=== PATIENT | male | born 1955 | race Two or more races ===

== ENCOUNTER 2025-03-25 21:34 | Emergency (ER) | payer MEDICARE, MEDICAID, SELFPAY ==
[2025-03-25 22:21] VITALS: BP 156/94; PULSE 56; RESP 20; TEMP 36.5; O2SAT 95; BMI 33.2
--- NOTE | 2025-03-25 22:34 | XR_ITS ---
Examination: CT abdomen with intravenous contrast CT pelvis with intravenous contrast 2-D coronal reconstructions 2-D sagittal reconstructions Date and time of exam: March 26, 2025, 0057 hours INDICATIONS: Onset abdominal pain and vomiting beginning this morning. CTDI: vol (mGy) 10.6 DLP: (mGycm) 659 Technique: Multiple axial sections of the abdomen and pelvis have been obtained. 64 slice high-resolution scanner used. 3 mm axial sections have been obtained, post intravenous injection 60 cc [id number] 2-D sagittal, coronal reconstructions obtained. Low dose protocols were performed. One or more of the following dose reduction techniques were used; automated exposure control, adjustment of the mA and/or KV according to patient size, use of iterative reconstruction technique. Findings: 6 mm calcified granuloma left lower lobe No visualized liver or splenic lesion Distended gallbladder Possible air in the gallbladder Gallbladder wall appears thickened toward the cystic duct No common bile duct stones noted Aorta normal size No renal or ureteral calculi No bowel obstruction No pericecal inflammatory change Minimal thickening of the urinary bladder wall anteriorly up to 8 mm No bladder calculi Prostatomegaly transverse dimension 5 cm IMPRESSION: Distended gallbladder with possible gallbladder wall thickening, recommend repeat gallbladder sonography Moderate prostatomegaly Minimal thickening of the urinary bladder wall, consider early outflow obstruction secondary to prostatomegaly, cystitis
--- NOTE | 2025-03-25 22:35 | PD.EDRME ---
Rapid Medical Screening Exam RME Arrival date/time: 03/25/25 21:34 69M with no significant PMH (patient doesn't like doctors) presents to ED with sister for 2 days of ab pain and N/V. Patient denies diarrhea and alcohol/drug use. Chief Complaint: Abdominal Pain Time Seen by Provider: 03/25/25 22:36 Vital signs: Vital Signs Temperature 97.7 F 03/25/25 22:21 Pulse Rate 56 L 03/25/25 22:21 Respiratory Rate 20 03/25/25 22:21 Blood Pressure 156/94 H 03/25/25 22:21 Pulse Oximetry (%) 95 03/25/25 22:21 Oxygen Delivery Method Room Air 03/25/25 22:21 Exam: No gross/focal ab tenderness Clinical Impression: Gastritis vs gastroenteritis vs SBO vs pancreatitis
[2025-03-25 23:17] LABS: Basophils # (Auto) 0.0 Thou/mm3 (0.0-0.2); Basophils % (Auto) 0 % (0-2.5); Eosinophils # (Auto) 0.0 Thou/mm3 (0.0-0.5); Eosinophils % (Auto) 0 % (0-10); Hematocrit 41.8 % (41.0-53.0); Hemoglobin 13.8 g/dL (13.5-16.0); Immature Granulocytes Auto 0.01 Thou/mm3 (0.00-0.00); Lymphocytes # (Auto) 0.9 Thou/mm3 (1.0-4.8); Lymphocytes % (Auto) 13 % (10-50); Mean Corpuscular HGB Conc 33.0 g/dl (31.0-37.0); Mean Corpuscular Hemoglobin 32.5 pg (25.0-35.0); Mean Corpuscular Volume 98 fL (80-100); Monocytes # (Auto) 0.3 Thou/mm3 (0.0-0.8); Monocytes % (Auto) 4 % (0-12); Neutrophils # (Auto) 5.9 Thou/mm3 (1.8-7.7); Neutrophils % (Auto) 83 % (37-80); Nucleated Red Blood Cell # 0.00 Thou/mm3 (0.00-0.00); Nucleated Red Blood Cell % 0 /100 WBC (0); Platelet Count 179 Thou/mm3 (140-440); RDW Standard Deviation 45.0 fL (35.1-43.9); Red Blood Count 4.25 Miln/mm3 (4.50-5.90); White Blood Count 7.1 Thou/mm3 (3.8-10.6)
[2025-03-25] MEDS: ONDANSETRON INJ 2 MG/ML INJ 2 ML 4 MG IVP (23:24)
--- NOTE | 2025-03-25 23:45 | PD.EDABDPN ---
ED Abdominal Pain RME/HPI General Chief Complaint: Abdominal Pain Stated complaint: ABD PAIN AND VOMITING Time seen by provider: 03/25/25 22:36 Arrival date/time: 03/25/25 21:34 RME / HPI RME / HPI narrative: 03/25/25 21:34 69M with no significant PMH (patient doesn't like doctors) presents to ED with sister for 2 days of ab pain and N/V. Patient denies diarrhea and alcohol/drug use. DR. CAI MAIN ED EVALUATION: 69 y/o male with Hx of Developmental Delay and Heart Murmur BIB sister presents to ED c/o epigastric abdominal pain and vomiting s/p consumption of jalapenos x 2 days ago. Denies bloody stools and dysuria. Reports normal bowel movements. Patient currently resides with his brother who also has a mental disability who are both cared for by their 2 sisters who live directly next door. Exam: No gross/focal ab tenderness Impression: Gastritis vs gastroenteritis vs SBO vs pancreatitis Related Data Previous Rx's ?Medication ?Instructions ?Recorded ondansetron 4 mg disintegrating 4 mg PO Q12H PRN nausea and 03/26/25 tablet vomiting 3 days #6 tabs Allergies Allergy/AdvReac Type Severity Reaction Status Date / Time No Known Allergies Allergy Verified 03/25/25 21:36 Review of Systems Review of Systems Systems Reviewed: All systems reviewed, normal except as documented Past Medical History Past Medical History CARDIAC: Positive Heart Murmur OTHER HISTORY: Positive Developmental Delay ED Exam Narrative Physical exam: GEN. APPEARANCE: The patient is alert awake oriented X-3 in no distress, lying down comfortably, does not look ill/toxic. Patient has good eye contact. Patient is cooperative. VITALS: All vitals were reviewed and the pulse ox is 95% on room air which is normal according to my interpretation. HEENT: Normocephalic, atraumatic. Pupils are equal and reactive. Oral mucosa is moist. Patent Nares NECK: Supple, nontender, no thyromegaly, no meningismus, no JVD CHEST: Symmetrical, atraumatic, and with equal expansion , Nontender on palpation no deformity and no crepitus. CARDIOVASCULAR: Heart regular rhythm no murmur or gallop rub or extra beats. LUNGS: Clear to auscultation bilaterally with symmetrical chest rise. No laboring tachypnea or wheezing. No intercostal subcostal retraction. No rales and no rhonchi. ABDOMEN: Soft, flat, mild diffuse abdominal pain, no guarding or rebound tenderness. There are no abnormal masses palpated. Active and normal bowel sounds. EXTREMITIES: Nontender. Symmetrical BL 2+ pitting edema No cyanosis. Patient is able to move all 4 extremities well, with full ROM and good CSM. SKIN: Warm and dry, no jaundice or rashes noted. MUSCULOSKELETAL: No lumbar or midline bony tenderness. There is no CVA tenderness. No paraspinal muscle spasm or tenderness. NEURO: Patient is PALU x 4, Cranial nerves II through XII grossly intact. There is no focal neurologic deficits noted. GCS is 15, PNS and FOLDER MACHINE appear grossly intact. PSYCHIATRIC: Patient is in normal mood and affect. Course Quality Measures none Orders Category Date Time Status CT Screening NOW Care 03/25/25 22:34 Active EKG (ED ONLY) *Do not use* NOW Care 03/25/25 23:53 Completed Insert IV NOW Care 03/25/25 22:[address] abdomen pelvis w con Stat Exams 03/25/25 22:34 Taken EKG (ED Only) Stat Exams 03/25/25 23:53 Ordered US abdomen limited Stat Exams 03/26/25 02:17 Taken Alcohol, Blood Medical Stat Lab 03/25/25 23:00 Completed CBC Stat Lab 03/25/25 23:00 Completed CMP [Comprehensive Metabolic Panel] Stat Lab 03/25/25 23:00 Completed Drug Screen,Urine Stat Lab 03/25/25 23:42 Completed Lactic Acid [Lactate (Lactic Acid)] Stat Lab 03/25/25 23:52 Completed Lipase Stat Lab 03/25/25 23:00 Completed Troponin I Stat Lab 03/25/25 23:51 Completed Urinalysis, C/S if Indicated Stat Lab 03/25/25 23:42 Completed Morphine* Inj Med 03/26/25 00:17 Discontinued 4 mg IVP STAT STA Ondansetron Inj [Zofran Inj] Med 03/25/25 22:34 Discontinued 4 mg IVP X1 ONE Pantoprazole Inj [Protonix Inj] Med 03/25/25 22:34 Discontinued 40 mg IVP X1 ONE Ringers Lactated 1000 ml [Lactated Ringers] 1,000 ml Med 03/25/25 23:52 Discontinued IV 999 mls/hr Vital Signs Vital signs: Vital Signs Temperature 97.7 F 03/25/25 22:21 Pulse Rate 56 L 03/25/25 22:21 Respiratory Rate 20 03/25/25 22:21 Blood Pressure 156/94 H 03/25/25 22:21 Pulse Oximetry (%) 95 03/25/25 22:21 Oxygen Delivery Method Room Air 03/25/25 22:21 Abdominal Pain MDM MDM Narrative MDM Narrative:: Scribe Attestation: I, Hortencia Arango, am scribing for and in the presence of Dr. Cai. Provider Notation: Although this document has been carefully reviewed, there may still be some phonetic and other typographical errors. These errors are purely grammatical due to imperfections in the software program and should not be construed in any way to compromise the substance of the patient's medical care during this visit. Patient is a 69-year-old male with medical history notable for intellectual disability that send Emergency Department brought in by his sister with concerns for abdominal pain vomiting, and 1 episode of diarrhea. Vital signs and exam as listed. Concern for pancreatitis, partial SBO, appendicitis, enteritis, ACS among others. By provide evaluated patient. Ordered labs, EKG, CT abdomen and pelvis with contrast offered medication for symptom relief. On my evaluation patient is hemodynamically stable not in distress, abdomen soft nice and nontender not peritonitic. Labs without leukocytosis, does have a left shift of 83%. Hemoglobin normal. Labs without any acute hematologic or significant metabolic abnormalities, lactic acid normal, troponin not elevated, no transaminitis, lipase normal. Urinalysis without evidence of blood, nitrite negative, leuk esterase -5 RBCs less than 1 WBC no bacteria less likely infected. Drug screen negative. CT abdomen pelvis with contrast notable for distended gallbladder with gallstones and prominent wall suspicious for acute calculous cholecystitis. Ordered right upper quadrant ultrasound. Patient data External records reviewed:: [facility] previous records (No prior ED records available for review.) Clinical information provided by:: patient and family (Sister) Social determinants that could affect healthcare access:: none Patient has the following chronic illnesses:: Developmental Delay, Heart Murmur How is presenting disease/condition affected by chronic disease/condition?: uneffected by Evaluation data The following diagnostics were reviewed and interpreted by me:: lab results, radiology exam(s) and EKG tracing(s) (EKG done at 00:08, 60 bpm, first degree heart block, RBBB, not a cardiac alert. - Interpreted by Dr. Ruth Cai.) Lab and/or radiology exams considered but not ordered:: None Interpretation Summary: RADIOLOGY Abdomen/Pelvis CT: Findings: The lung bases are clear. The liver, pancreas, spleen, kidneys and adrenals are unremarkable. Distended gallbladder with prominent wall. Gallstones. No biliary duct dilation. Questionable trace of air within the gallbladder versus motion related artifact. No evidence of bowel obstruction. The appendix is within normal limits. There is no mesenteric or retroperitoneal adenopathy. The urinary bladder is unremarkable. There is no free fluid or free air.Enlarged prostate. Vascular calcifications. Degenerative changes of the imaged portions of the spine. Chronic multilevel disc disease. No acute fractures. Impression: Distended gallbladder with gallstones and prominent wall, suspicious for acute calculous cholecystitis. Questionable trace of air within the gallbladder versus motion related artifact. Enlarged prostate. Consider correlation with PSA. Abdomen US: Findings: The liver is normal in echogenicity. No intrahepatic biliary ductal dilatation. Distended gallbladder. No gallbladder calculus, wall thickening or pericholecystic fluid is demonstrated. The common bile duct is normal in caliber at 6.2 mm. The portal vein is patent with hepatopetal flow and normal wave Doppler spectral analysis. The IVC is patent with normal wave Doppler spectral analysis. Impression: Distended gallbladder without evidence of acute cholecystitis, if the clinical suspicion for acute cholecystitis is still high consider correlation with HIDA scan. Medications / Prescriptions Medications or Prescriptions considered but not ordered:: None Medication administrations:: Medication Administration History Discontinued Medications Lactated Ringer's (Lactated Ringers) 1,000 mls @ 999 mls/hr IV .Q1H1M ONE Stop: 03/26/25 00:52 Last Infusion: 03/26/25 04:03 Dose: Infused Documented By: Admin: 03/26/25 00:13 Dose: 999 mls/hr Documented By: EE Morphine Sulfate (Morphine Sulf Inj 4 Mg/Ml Vial) 4 mg IVP STAT STA Stop: 03/26/25 00:18 Last Admin: 03/26/25 01:10 Dose: 4 mg Documented By: MAURI Ondansetron HCl (Ondansetron Inj 2 Mg/Ml Inj 2 Ml) 4 mg IVP X1 ONE; Protocol Stop: 03/25/25 22:35 Last Admin: 03/25/25 23:24 Dose: 4 mg Documented By: EE Pantoprazole Sodium (Pantoprazole Inj 40 Mg Vial) 40 mg IVP X1 ONE Stop: 03/25/25 22:35 Last Admin: 03/26/25 00:20 Dose: 40 mg Documented By: GALILEA See above if any Consultations Consultation(s) initiated? (list below): No Diagnosis Differential diagnosis abdominal pain: abdominal pain, calculus of kidney, diverticulitis, gastroenteritis, pancreatitis, small bowel obstruction and other (Biliary colic, Cholelithiasis, Gastritis, GERD, Peptic Ulcer) Most likely diagnosis given after review of the tests above:: Abdominal pain, Diarrhea, Vomiting Admission Indicated Admission indicated?: not indicated Explain why admission is indicated or not indicated:: Patient does not meet admission criteria. Admission Request Was there a request for admission?: No Disposition Plan Disposition Plan: Discharge Discharge Attestation Discharge Attestation: The patient and all family members were given an opportunity to ask questions and understood the discharge instructions. Discharge instructions specifically effects, indications for sooner follow up or return to the emergency department, and the expected course of current diagnosis. Patient condition: Stable Discharge Plan Plan Patient Disposition: HOME (Self Care) Prescriptions/Referrals Prescriptions/Med Rec: New ondansetron 4 mg tablet,disintegrating 4 mg PO Q12H PRN (Reason: nausea and vomiting) 3 Days Qty: 6 0RF Referrals: Dar Ortiz MD [Primary Care Provider, Family Practice] - In 1 week Problem List Clinical Impression: Abdominal pain, Vomiting, Diarrhea Patient/Caregiver Discharge Instructions Print Language: Wallisian Stand Alone Forms: Elsie Award Info., Patient Portal Info Letter
[2025-03-25 23:46] LABS: Collection Type, Urine Clean Catch
[2025-03-25 23:55] LABS: Bilirubin,Urine Negative (Negative); Blood,Urine Negative (Negative); Clarity,Urine Clear (Clear/Hazy); Color,Urine Lt-Yellow (Lt Yel-Yel); Culture Indicated,Urine Not Indicated; Glucose, Urine Negative (Negative); Ketones,Urine 1+ (Negative); Leukocyte Esterase,Urine Negative (Negative); Nitrite,Urine Negative (Negative); PH,Urine 8.0 (5.0-7.0); Protein,Urine Trace (Neg - Trace); RBC,Urine 5 /hpf (0-3); Specific Gravity,Urine 1.019 (1.001-1.035); Squamous Epithelial Cell,Urine < 1 /hpf (0-5); Urobilinogen,Urine Negative mg/dL (0.0-1.0); WBC,Urine < 1 /hpf (0-5)
[2025-03-26 00:02] LABS: Amphetamine/Methamp Scrn,U Negative (Negative); Barbiturate Screen,Urine Negative (Negative); Benzodiazepines Screen,Urine Negative (Negative); Benzoylecgonine Screen, Ur Negative (Negative); Fentanyl Screen,Urine Negative (Negative); Opiate Screen,Urine Negative (Negative); THC Screen,Urine Negative (Negative)
[2025-03-26 00:02] LABS: Alanine Aminotransferase 13 U/L (10-49); Albumin, Serum 4.7 gm/dL (3.4-4.8); Albumin/Globulin Ratio 1.6 (1.2-2.2); Alcohol, Blood Medical < 3.0 mg/dL (0-10.0); Alkaline Phosphatase 100 U/L (46-116); Anion Gap 9 (7-16); Aspartate Amino Transferase 20 U/L (0-34); BUN/Creatinine Ratio 15 Ratio (12-20); Bilirubin,Total 0.6 mg/dL (0.3-1.2); Blood Urea Nitrogen 12 mg/dL (9-23); Calcium 9.6 mg/dL (8.3-10.6); Calcium (Corrected) 9.6 mg/dL (8.5-10.1); Carbon Dioxide 28.1 mMol/L (20.0-31.0); Chloride 104 mMol/L (98-107); Creatinine (Component) 0.8 mg/dL (0.6-1.3); Estimated Creatinine Clearance 97.7 mL/min (>60); Globulin 2.9 gm/dL (2.3-3.5); Glucose 122 mg/dL (74-106); Lipase 27 U/L (12-53); Osmolality,Calculated 281 (275-295); Potassium 4.2 mMol/L (3.4-5.1); Sodium 141 mMol/L (136-145); Total Protein 7.6 gm/dL (5.7-8.2); eGFR > 60 See Note
[2025-03-26 00:05] VITALS: BP 190/116; PULSE 66; RESP 17; TEMP 36.6; O2SAT 95
[2025-03-26 00:11] LABS: Lactate (Lactic Acid) 1.5 mMol/L (0.4-2.0)
[2025-03-26] MEDS: RINGERS LACTATED 1000 ML 1,000 ML 999 ML IV (00:13)
[2025-03-26 00:35] LABS: Troponin I < 0.020 ng/mL (0.0-0.045)
[2025-03-26] MEDS: MORPHINE SULF INJ 4 MG/ML VIAL IVP (01:10)
[2025-03-26 01:38] VITALS: BP 170/97; PULSE 63; RESP 18; O2SAT 94
--- NOTE | 2025-03-26 02:09 | PRELIM_ITS ---
CT scan of the abdomen and pelvis with intravenous contrast (axial sections with sagittal and coronal reformats) March 26, 2025 0057 hours Clinical History: Abdominal pain and Nausea/Vomiting Comparison: None available at the time of this report. Findings: The lung bases are clear. The liver, pancreas, spleen, kidneys and adrenals are unremarkable. Distended gallbladder with prominent wall. Gallstones. No biliary duct dilation. Questionable trace of air within the gallbladder versus motion related artifact. No evidence of bowel obstruction. The appendix is within normal limits. There is no mesenteric or retroperitoneal adenopathy. The urinary bladder is unremarkable. There is no free fluid or free air.Enlarged prostate. Vascular calcifications. Degenerative changes of the imaged portions of the spine. Chronic multilevel disc disease. No acute fractures. Impression: Distended gallbladder with gallstones and prominent wall, suspicious for acute calculous cholecystitis. Questionable trace of air within the gallbladder versus motion related artifact. Enlarged prostate. Consider correlation with PSA. Report Electronically Signed By: Zackary Hernandez 03/26/2025 2:09:06 AM [EST]
--- NOTE | 2025-03-26 02:17 | XR_ITS ---
Examination: Abdomen sonogram, Limited Date and time of exam: March 26, 2025, 0324 hours INDICATIONS: Right upper abdominal pain nausea beginning 2 years ago Technique: Real-time agustin scale transabdominal sonographic images of the upper abdomen obtained. Findings: Negative for gallstones Normal gallbladder wall Common bile duct 0.62 cm no stones Pancreas obscured by bowel gas Liver 13.9 cm no liver lesions Normal hepatopetal portal venous flow Patent IVC IMPRESSION: Normal gallbladder Negative for common bile duct stones
--- NOTE | 2025-03-26 05:06 | PRELIM_ITS ---
Right upper quadrant abdominal ultrasound with Doppler and wave Doppler spectral analysis. March 26, 2025 0327 hours Clinical history: cholecystitis Technique: Grayscale and color flow images of the right upper quadrant are provided. Hepatic and portal veins were also imaged with color flow images. Comparison: CT of March 26, 2025. Findings: The liver is normal in echogenicity. No intrahepatic biliary ductal dilatation. Distended gallbladder. No gallbladder calculus, wall thickening or pericholecystic fluid is demonstrated. The common bile duct is normal in caliber at 6.2 mm. The portal vein is patent with hepatopetal flow and normal wave Doppler spectral analysis. The IVC is patent with normal wave Doppler spectral analysis. Impression: Distended gallbladder without evidence of acute cholecystitis, if the clinical suspicion for acute cholecystitis is still high consider correlation with HIDA scan. Report Electronically Signed By: Zackary Hernandez 03/26/2025 5:06:10 AM [EST]
[2025-03-26 05:07] VITALS: BP 138/66; PULSE 77; RESP 16; TEMP 36.8; O2SAT 94
== END 2025-03-26 05:20 | disposition home or self-care (01) ==
PROVIDERS: Physician Assistant; Emergency Provider Emergency Medicine; PCP Family Medicine
DX: K80.20 Calculus of gallbladder without cholecystitis without obstruction (principal); K82.8 Other specified diseases of gallbladder; N40.0 Benign prostatic hyperplasia without lower urinary tract symptoms; R19.7 Diarrhea, unspecified; R11.2 Nausea with vomiting, unspecified; I44.0 Atrioventricular block, first degree; I45.10 Unspecified right bundle-branch block
CPT/HCPCS: 36415; 74177; 76705; 80053; 80307; 80320; 81001; 83605; 83690; 84484; 85025; 93005; 96361; 96374; 96375; 99284; A4649; J2270; J2405; J2470; J7120; Q9967; G0480